=== PATIENT | female | born 1985 | race Caucasian/White ===

== ENCOUNTER 2017-07-31 18:08 | Emergency (ER) | payer OTHER ==
[~2017-07-31] VITALS: Ht 172.7 cm; Wt 79.4 kg
[~2017-07-31 18:08] MED LIST: BRINTELLIX10 MG PO; GABAPENTIN800 MG PO; KLONOPIN0.5 M1 PO; LOPRESSOR50 MG PO; NOHOMEMEDS; TOPROL XL50 MG PO; VIIBRYD40 MG PO
[2017-07-31] MEDS ORDERED: LIDODERM 5% P1 PATCH TD (20:46)
[2017-07-31] MEDS ORDERED: MOTRIN600 MG PO (20:46)
[2017-07-31] MEDS ORDERED: FLEXERIL10 MG PO (20:46)
[2017-07-31] MEDS ORDERED: PREDNISONE20 MG PO (20:47)
[2017-07-31 21:08] VITALS: BP 128/88
== END 2017-07-31 21:12 | disposition home or self-care (01) ==
LOC: EME 18:08
DX: M54.2 Cervicalgia (principal); M62.838 Other muscle spasm
CPT/HCPCS: 72040; 99281; 99284; J7512

== ENCOUNTER → 2017-08-12 | Outpatient (CLI) | payer OTHER ==
[~2017-08-12] VITALS: Ht 171.4 cm; Wt 80.3 kg
[~2017-08-12] MED LIST changes: +CYMBALTA60 MG PO; +FLEXERIL10 MG PO; +LIDODERM 5% P1 PATCH TD; +MOBIC15 MG PO; +MOTRIN600 MG PO; +PREDNISONE20 MG PO; +VITAMIN D35000 UNIT PO; +WELLBUTRIN XL300 MG PO
== END | disposition home or self-care (01) ==
LOC: AMB 13:30
DX: K29.70 Gastritis, unspecified, without bleeding (principal); K64.8 Other hemorrhoids; K59.00 Constipation, unspecified; M62.81 Muscle weakness (generalized); R10.31 Right lower quadrant pain; R63.4 Abnormal weight loss; R13.10 Dysphagia, unspecified; I49.9 Cardiac arrhythmia, unspecified; R11.0 Nausea; Z80.0 Family history of malignant neoplasm of digestive organs; F43.10 Post-traumatic stress disorder, unspecified; F17.200 Nicotine dependence, unspecified, uncomplicated; Z80.42 Family history of malignant neoplasm of prostate; Z82.61 Family history of arthritis; Z82.0 Family history of epilepsy and other diseases of the nervous system; Z82.49 Family history of ischemic heart disease and other diseases of the circulatory system; Z80.8 Family history of malignant neoplasm of other organs or systems; Z83.49 Family history of other endocrine, nutritional and metabolic diseases; Z88.8 Allergy status to other drugs, medicaments and biological substances
CPT/HCPCS: 88305; 88342 TC; J2250; J3010

== ENCOUNTER 2017-08-20 17:22 | Emergency (ER) | payer OTHER ==
[~2017-08-20] VITALS: Ht 167.6 cm; Wt 80.0 kg
[2017-08-20 17:37] VITALS: BP 160/106
[2017-08-20 19:07] LABS: HEMATOCRIT 42.4 % (36.0-46.0); MCV 91.2 FL (83-99); MEAN PLAT.VOLUME 10.8 uM^3 (9.5-12.4); PLATELET COUNT 299 K/uL (156-360); RBC DIS.WIDTH-CV 13.4 % (11.8-14.6); RBC DIS.WIDTH-SD 44.9 % (39-53); RED BLOOD COUNT 4.65 M/uL (3.80-5.20); WHITE BLOOD COUNT 8.9 K/uL (4.1-10.2)
[2017-08-20 20:08] LABS: CHLORIDE 108 mEq/L (99-109); POTASSIUM 3.5 mEq/L (3.7-5.4); SODIUM 140 mEq/L (136-147)
[2017-08-20 20:10] LABS: GLUCOSE 93 mg/dL (70-99)
[2017-08-20 20:11] LABS: ANION GAP 12 MEQ/L (2-14)
[2017-08-20 20:12] LABS: TOTAL BILIRUBIN 0.6 mg/dL (0.0-1.0)
[2017-08-20 20:14] LABS: ALKALINE PHOSPHATASE 52 IU/L (3-129); GFR ESTIMATE (CALCULATED) > 59 mL/min/
[2017-08-20 20:15] LABS: UREA NITROGEN (BUN) 6 mg/dL (9-23)
[2017-08-20 20:22] LABS: QUANTITATIVE HCG < 4.0 MIU/ML
[2017-08-20 20:58] LABS: ADD MIUA? YES; BILIRUBIN NEGATIVE; BLOOD SMALL; COLOR STRAW ((YELLOW)); GLUCOSE (STRIP) NEGATIVE; KETONES 5; LEUKOCYTES NEGATIVE; NITRITE NEGATIVE; PROTEIN (STRIP) NEGATIVE; SPECIFIC GRAVITY 1.006 (1.000-1.030); UROBILINOGEN 0.2 MG/DL (0.2-1.0)
[2017-08-20 21:20] LABS: BACTERIA RARE /HPF; EPITHELIAL CELLS RARE /HPF; MUCUS NONE SEEN /LPF; RED BLOOD CELLS 0-5 /HPF (0-5); WHITE BLOOD CELLS 0-5 /HPF (0-5)
[2017-08-20 21:56] LABS: CASTS NONE SEEN /LPF; CRYSTALS NONE SEEN
[2017-08-20] MEDS ORDERED: CYMBALTA60 MG PO (21:59)
== END 2017-08-20 22:07 | disposition home or self-care (01) ==
LOC: EXP 17:22 → EME 17:22 → EXP 22:07
PROVIDERS: Physician Assistant
DX: R53.81 Other malaise (principal); R42 Dizziness and giddiness; T43.215A Adverse effect of selective serotonin and norepinephrine reuptake inhibitors, initial encounter; F41.0 Panic disorder [episodic paroxysmal anxiety]; F32.9 Major depressive disorder, single episode, unspecified; M79.7 Fibromyalgia; F17.200 Nicotine dependence, unspecified, uncomplicated; I10 Essential (primary) hypertension
CPT/HCPCS: 80053; 81003; 84702; 85027; 99281; 99284; J0780; J7030

== ENCOUNTER 2018-01-10 15:06 | Emergency (ER) | payer OTHER ==
[~2018-01-10] VITALS: Ht 170.2 cm; Wt 84.9 kg
[2018-01-10 15:33] LABS: BASOPHIL (%) 0.8 % (0-1); BASOPHIL COUNT 0.1 K/uL (0-0.1); EOSINOPHIL (%) 1.4 % (0-5); EOSINOPHIL COUNT 0.1 K/uL (0-0.3); HEMATOCRIT 40.5 % (36.0-46.0); HEMOGLOBIN 13.8 G/DL (11.9-15.5); IMMATURE GRANULOCYTE (%) 0.3 % (0.0-0.7); LYMPHOCYTE (%) 23.7 % (15-42); LYMPHOCYTE COUNT 2.2 K/uL (1.0-2.8); MCH 31.4 PG (29.0-34.0); MCHC 34.1 G/DL (30.0-36.0); MONOCYTE (%) 7.2 % (3-12); MONOCYTE COUNT 0.7 K/uL (0-0.8); NEUTROPHIL (%) 66.6 % (45-76); NEUTROPHIL COUNT 6.1 K/uL (1.8-6.4); PLATELET COUNT 328 K/uL (156-360); RBC DIS.WIDTH-SD 43.8 % (39-53); WHITE BLOOD COUNT 9.2 K/uL (4.1-10.2)
[2018-01-10 15:41] LABS: ALBUMIN 4.2 g/dL (3.2-4.8)
[2018-01-10 15:42] LABS: CHLORIDE 108 mEq/L (99-109); POTASSIUM 4.3 mEq/L (3.7-5.4); SODIUM 141 mEq/L (136-147)
[2018-01-10 15:44] LABS: GLUCOSE 91 mg/dL (70-99); TOTAL PROTEIN 6.8 g/dL (6.4-8.3)
[2018-01-10 15:46] LABS: TOTAL BILIRUBIN 0.3 mg/dL (0.0-1.0)
[2018-01-10 15:47] LABS: ALKALINE PHOSPHATASE 61 IU/L (3-129); SERUM ETHYL ALCOHOL < 10 mg/dL
[2018-01-10 15:48] LABS: CREATININE 0.9 mg/dL (0.6-1.3); GFR ESTIMATE (CALCULATED) > 59 mL/min/
[2018-01-10 15:49] LABS: AST (GOT) 14 IU/L (2-34); UREA NITROGEN (BUN) 7 mg/dL (9-23)
[2018-01-10 15:51] LABS: ALT (GPT) 10 IU/L (3-49)
[2018-01-10 15:57] LABS: QUANTITATIVE HCG < 4.0 MIU/ML
[2018-01-10 16:41] VITALS: BP 130/78
== END 2018-01-10 16:55 | disposition home or self-care (01) ==
LOC: EME 15:06
PROVIDERS: Emergency Medicine
DX: F32.9 Major depressive disorder, single episode, unspecified (principal); F41.9 Anxiety disorder, unspecified; I10 Essential (primary) hypertension; F17.200 Nicotine dependence, unspecified, uncomplicated
CPT/HCPCS: 80053; 81003; 84702; 85025; 90837; 99281; 99284; G0480